=== PATIENT | female | born 1985 | race Caucasian/White ===

== ENCOUNTER → 2016-07-14 | Outpatient (CLI) | payer OTHER ==
[~2016-07-14] MED LIST: COLACE 100MG C100 MG PO
== END ==
LOC: LAB 12:38
DX: N91.2 Amenorrhea, unspecified (principal)
CPT/HCPCS: 36415; 84702

== ENCOUNTER 2020-05-15 07:13 | Emergency (ER) | payer OTHER ==
[~2020-05-15 07:13] MED LIST changes: +IBUPROFEN600 MG PO
[2020-05-15 08:39] LABS: HEMOGLOBIN 15.3 gm/dl (12.3-15.3); RED BLOOD COUNT 4.55 M/UL (4.00-5.10); WHITE BLOOD COUNT 13.6 K/UL (4.5-11.0)
[2020-05-15 09:31] LABS: BUN/CREATININE RATIO 10 (0-10)
[2020-08-26] MEDS ORDERED: GABAPENTIN800 MG PO (11:39)
[2020-08-26] MEDS ORDERED: BUSPIRONE HCL5 MG PO (11:42)
[2020-08-26] MEDS ORDERED: CLONIDINE HCL0.1 MG PO (11:43)
[2020-08-26] MEDS ORDERED: LORATADINE10 MG PO (11:44)
[2020-08-26] MEDS ORDERED: LOSARTAN-HCTZ1 EAC2 PO (11:44)
[2020-08-26] MEDS ORDERED: PRAZOSIN HCL1 MG PO (11:46)
== END 2020-05-15 20:30 | disposition short-term general hospital (02) ==
LOC: ER1 07:13
PROVIDERS: Student in an Organized Health Care Education/Training Program
DX: R45.851 Suicidal ideations (principal); F10.129 Alcohol abuse with intoxication, unspecified; Y90.9 Presence of alcohol in blood, level not specified; I10 Essential (primary) hypertension; Z20.822 Contact with and (suspected) exposure to COVID-19; F32.9 Major depressive disorder, single episode, unspecified; F41.9 Anxiety disorder, unspecified; F17.210 Nicotine dependence, cigarettes, uncomplicated; Z86.19 Personal history of other infectious and parasitic diseases
CPT/HCPCS: 0240U; 73130; 80053; 80307; 81001; 83735; 84703; 85025; 90471; 90715; 93005; 99285; G0480

== ENCOUNTER 2020-08-29 07:15 | Emergency (ER) | payer OTHER ==
[~2020-08-29 07:15] MED LIST changes: +BUSPIRONE HCL5 MG PO; +CLONIDINE HCL0.1 MG PO; +GABAPENTIN800 MG PO; +LORATADINE10 MG PO; +LOSARTAN-HCTZ1 EAC2 PO; +PRAZOSIN HCL1 MG PO
[2020-08-29] MEDS ORDERED: BACTRIM DS TAB1 EACH PO (07:53)
[2020-08-29] MEDS ORDERED: CEPHALEXIN500 MG PO ×2 (07:53→11:41)
[2020-08-29] MEDS ORDERED: BACITRACIN3.5 GM TOP (07:53)
[2020-08-29] MEDS ORDERED: BACITRACIN28.4 GM TP (11:40)
[2020-08-29] MEDS ORDERED: SULFAMETHOXAZO1 EACH PO (11:41)
== END 2020-08-29 09:15 | disposition home or self-care (01) ==
LOC: ER1 07:15
DX: N64.4 Mastodynia (principal); N61.0 Mastitis without abscess; I10 Essential (primary) hypertension; F17.210 Nicotine dependence, cigarettes, uncomplicated; M06.9 Rheumatoid arthritis, unspecified; Z79.899 Other long term (current) drug therapy
CPT/HCPCS: 99283

== ENCOUNTER 2020-09-04 05:58 | Inpatient (IN) | payer OTHER ==
[~2020-09-04] VITALS: Ht 167.6 cm; Wt 113.4 kg
[~2020-09-04 05:58] MED LIST changes: +BACITRACIN28.4 GM TP; +BACITRACIN3.5 GM TOP; +BACTRIM DS TAB1 EACH PO; +CEPHALEXIN500 MG PO; +SULFAMETHOXAZO1 EACH PO
[2020-09-04 06:41] LABS: HEMOGLOBIN 15.4 gm/dl (12.3-15.3); RED BLOOD COUNT 4.54 M/UL (4.00-5.10); WHITE BLOOD COUNT 4.3 K/UL (4.5-11.0)
[2020-09-04 07:02] LABS: BUN/CREATININE RATIO 11 (0-10)
[2020-09-05 06:17] LABS: HEMOGLOBIN 14.7 gm/dl (12.3-15.3); RED BLOOD COUNT 4.35 M/UL (4.00-5.10)
[2020-09-05 06:36] LABS: BUN/CREATININE RATIO 17 (0-10)
[2020-09-06 03:01] LABS: RED BLOOD COUNT 4.44 M/UL (4.00-5.10)
[2020-09-06 03:02] LABS: WHITE BLOOD COUNT 7.7 K/UL (4.5-11.0)
[2020-09-06 03:21] LABS: BUN/CREATININE RATIO 23 (0-10)
[2020-09-07 09:08] LABS: HEMOGLOBIN 14.9 gm/dl (12.3-15.3); RED BLOOD COUNT 4.38 M/UL (4.00-5.10); WHITE BLOOD COUNT 5.8 K/UL (4.5-11.0)
[2020-09-07 09:30] LABS: HIV SCREEN 4TH GENERATION WRFX Non Reactive (Non Reactive)
[2020-09-07 09:50] LABS: BUN/CREATININE RATIO 26 (0-10)
[2020-09-07 10:34] LABS: HBSAG SCREEN Negative (Negative); HEP A AB, IGM Negative (Negative); HEP B CORE AB, IGM Positive (Negative); HEP C VIRUS AB <0.1 (0.0-0.9)
[2020-09-08 08:34] LABS: HEMOGLOBIN 14.4 gm/dl (12.3-15.3); RED BLOOD COUNT 4.33 M/UL (4.00-5.10)
[2020-09-08 08:35] LABS: WHITE BLOOD COUNT 7.9 K/UL (4.5-11.0)
[2020-09-08] MEDS ORDERED: ZINC SULFATE50 MG PO (08:55)
[2020-09-08] MEDS ORDERED: PROVENTIL HFA6.7 GM INH (08:59)
[2020-09-08] MEDS ORDERED: GUAIFENESIN AC473 ML PO (08:59)
[2020-09-08] MEDS ORDERED: DECADRON6 MG PO (08:59)
[2020-09-08 09:02] LABS: BUN/CREATININE RATIO 23 (0-10)
== END 2020-09-08 13:00 | disposition home or self-care (01) | DRG 177 ==
LOC: ER1 05:58 → M/S 09:23 → CDU 09:23 → M/S 13:22
PROVIDERS: Emergency Medicine; Internal Medicine; ADMIT Internal Medicine
PROC: XW033E5 Introduction of Remdesivir Anti-infective into Peripheral Vein, Percutaneous Approach, New Technology Group 5 (ICD-10-PCS; principal; 2020-09-04)
PROC: 8E0ZXY6 Isolation (ICD-10-PCS; 2020-09-04)
DX: U07.1 COVID-19 (principal); J12.82 Pneumonia due to coronavirus disease 2019; J96.01 Acute respiratory failure with hypoxia; F11.20 Opioid dependence, uncomplicated; E87.1 Hypo-osmolality and hyponatremia; R74.01 Elevation of levels of liver transaminase levels; E66.9 Obesity, unspecified; K80.20 Calculus of gallbladder without cholecystitis without obstruction; F39 Unspecified mood [affective] disorder; D72.819 Decreased white blood cell count, unspecified; D69.6 Thrombocytopenia, unspecified; I10 Essential (primary) hypertension; M19.90 Unspecified osteoarthritis, unspecified site; F41.9 Anxiety disorder, unspecified; F17.290 Nicotine dependence, other tobacco product, uncomplicated; K75.81 Nonalcoholic steatohepatitis (NASH); Z88.8 Allergy status to other drugs, medicaments and biological substances; Z68.35 Body mass index [BMI] 35.0-35.9, adult; Z80.7 Family history of other malignant neoplasms of lymphoid, hematopoietic and related tissues; Z86.19 Personal history of other infectious and parasitic diseases; Z79.899 Other long term (current) drug therapy
CPT/HCPCS: 36415; 36600; 71045; 76705; 80053; 80074; 82550; 82553; 82728; 82803; 83036; 83605; 83615; 83874; 83880; 84484; 84703; 85025; 85027; 85379; 86140; 87040; 87389; 94640; 94664; 94760; 99284; J1100; J1650; J7030

== ENCOUNTER 2020-11-08 02:27 | Emergency (ER) | payer OTHER ==
[~2020-11-08 02:27] MED LIST changes: +DECADRON6 MG PO; +GUAIFENESIN AC473 ML PO; +PROVENTIL HFA6.7 GM INH; +ZINC SULFATE50 MG PO
[2020-11-08] MEDS ORDERED: POLYSPORIN OI28.3 G1 TP (03:28)
[2020-11-08] MEDS ORDERED: IBUPROFEN600 MG PO (03:28)
== END 2020-11-08 02:34 | disposition home or self-care (01) ==
LOC: ER1 02:27
DX: S51.811A Laceration without foreign body of right forearm, initial encounter (principal); F17.210 Nicotine dependence, cigarettes, uncomplicated; W19.XXXA Unspecified fall, initial encounter; Y92.009 Unspecified place in unspecified non-institutional (private) residence as the place of occurrence of the external cause
CPT/HCPCS: 12002; 73090; 99283

== ENCOUNTER 2020-12-10 18:52 | Emergency (ER) | payer OTHER ==
[~2020-12-10 18:52] MED LIST changes: +POLYSPORIN OI28.3 G1 TP
[2020-12-10 21:04] LABS: HEMOGLOBIN 12.9 gm/dl (12.3-15.3); RED BLOOD COUNT 3.88 M/UL (4.00-5.10); WHITE BLOOD COUNT 11.3 K/UL (4.5-11.0)
[2020-12-10 21:19] LABS: BUN/CREATININE RATIO 19 (0-10)
== END 2020-12-10 21:56 | disposition home or self-care (01) ==
LOC: ER1 18:52
PROVIDERS: Family Medicine
DX: O20.9 Hemorrhage in early pregnancy, unspecified (principal)
CPT/HCPCS: 80053; 81001; 84702; 85025; 99284

== ENCOUNTER → 2020-12-13 | Outpatient (CLI) | payer OTHER | LOC: LAB 11:00 | DX: O46.90 Antepartum hemorrhage, unspecified, unspecified trimester (principal); Z3A.00 Weeks of gestation of pregnancy not specified | CPT/HCPCS: 36415; 84702 ==

== ENCOUNTER → 2020-12-20 | Outpatient (CLI) | payer OTHER | LOC: LAB 08:26 | DX: N93.9 Abnormal uterine and vaginal bleeding, unspecified (principal); Z33.1 Pregnant state, incidental | CPT/HCPCS: 36415; 84702 ==

== ENCOUNTER 2021-07-10 12:23 | Outpatient (CLI) | payer OTHER | END 2021-07-10 17:53 | disposition home or self-care (01) | LOC: GENOP 12:23 | DX: O47.03 False labor before 37 completed weeks of gestation, third trimester (principal); O10.913 Unspecified pre-existing hypertension complicating pregnancy, third trimester; O99.333 Smoking (tobacco) complicating pregnancy, third trimester; F17.210 Nicotine dependence, cigarettes, uncomplicated; Z3A.35 35 weeks gestation of pregnancy | CPT/HCPCS: 81001; 96360; 96361; 96372; J3105; J7042 ==

== ENCOUNTER 2021-07-25 09:42 | Outpatient (CLI) | payer OTHER | END 2021-07-25 15:42 | disposition home or self-care (01) | LOC: GENOP 09:42 | DX: O47.1 False labor at or after 37 completed weeks of gestation (principal); O99.333 Smoking (tobacco) complicating pregnancy, third trimester; Z3A.37 37 weeks gestation of pregnancy | CPT/HCPCS: 96360; 96361; J7120 ==

== ENCOUNTER 2021-08-02 09:04 | Inpatient (IN) | payer OTHER ==
[~2021-08-02] VITALS: Ht 167.6 cm; Wt 125.2 kg
[2021-08-02 10:01] LABS: HEMOGLOBIN 11.9 gm/dl (12.3-15.3); RED BLOOD COUNT 3.67 M/UL (4.00-5.10); WHITE BLOOD COUNT 15.3 K/UL (4.5-11.0)
[2021-08-02] MEDS ORDERED: TYLENOL325 M1 PO (10:27)
[2021-08-02] MEDS ORDERED: HYDROCODON-ACE1 EAC2 PO (17:05)
[2021-08-02] MEDS ORDERED: COLACE 100MG C100 MG PO (17:05)
[2021-08-02] MEDS ORDERED: IBUPROFEN800 MG PO (17:05)
[2021-08-03 07:32] LABS: HEMOGLOBIN 10.5 gm/dl (12.3-15.3)
[2021-08-04] MEDS ORDERED: ENDOCET 10-3251 EACH PO (14:00)
[2021-08-04] MEDS ORDERED: LABETALOL HCL200 MG PO (14:05)
== END 2021-08-04 15:08 | disposition home or self-care (01) | DRG 786 ==
LOC: GENOP 09:04 → OB 10:15
PROVIDERS: ADMIT Obstetrics & Gynecology
PROC: 3E0234Z Introduction of Serum, Toxoid and Vaccine into Muscle, Percutaneous Approach (ICD-10-PCS; 2021-08-02)
PROC: 10D00Z1 Extraction of Products of Conception, Low, Open Approach (ICD-10-PCS; principal; 2021-08-02 11:08)
DX: O34.211 Maternal care for low transverse scar from previous cesarean delivery (principal); O45.8X3 Other premature separation of placenta, third trimester; O99.354 Diseases of the nervous system complicating childbirth; N85.8 Other specified noninflammatory disorders of uterus; Z3A.38 38 weeks gestation of pregnancy; Z37.0 Single live birth; O99.214 Obesity complicating childbirth; E66.8 Other obesity; Z28.310 Unvaccinated for COVID-19; G43.909 Migraine, unspecified, not intractable, without status migrainosus; Z23 Encounter for immunization
CPT/HCPCS: 36415; 81001; 82800; 85014; 85018; 85025; 85384; 85730; 86850; 86900; 86901; 90471; 90715; C9113; J0690; J1170; J2405; J2550; J2590; J3010; J7040

== ENCOUNTER → 2021-10-21 | Outpatient (CLI) | payer OTHER ==
[~2021-10-21] MED LIST changes: +ENDOCET 10-3251 EACH PO; +HYDROCODON-ACE1 EAC2 PO; +IBUPROFEN800 MG PO; +LABETALOL HCL200 MG PO; +TYLENOL325 M1 PO
== END ==
LOC: RAD 16:19
DX: M25.562 Pain in left knee (principal); M54.2 Cervicalgia; M54.6 Pain in thoracic spine; M54.50 Low back pain, unspecified; R05.9 Cough, unspecified
CPT/HCPCS: 71046; 72040; 72070; 72100; 73562